=== PATIENT | female | born 1990 | race Caucasian/White ===

== ENCOUNTER 2017-11-06 12:08 | Emergency (ER) | payer OTHER ==
--- NOTE | 2017-11-06 12:52 | CPEKG ---
Heart Rate: 71 RR Interval: 845 P-R Interval: 136 QRSD Interval: 70 QT Interval: 404 QTC Interval: 439 P Hardesty: 10 QRS Hardesty: 59 T Wave Hardesty: 48 EKG Severity - NORMAL ECG - EKG Impression: SINUS RHYTHM Electronically Signed By: Xin Rowe 06-Nov-2017 14:55:05
--- NOTE | 2017-11-06 13:37 | EDPHY ---
H & P Time Seen by Provider: 11/06/17 12:35 HPI/ROS: HPI Chest pain. 26-year-old female by private vehicle. This patient complains of sudden onset chest pain which she describes as underneath her left mid breast onset at 10:25 a.m.. She describes it as sharp and stabbing. She stated that it was intense and worse with taking a deep breath and lasting about 15 min until 10:40 a.m.. She reports that it then decreased in intensity but kind of came and went at a lower level. Now she denies any chest pain or shortness of breath. She called her primary care physician and was told to come to the emergency department for evaluation. She has no cardiac risk factors. No significant past medical history. She does take control. No prolonged sedentary activity or travel. ROS: Constitutional: No fever, no chills. No weakness. Respiratory: No cough. No shortness of breath. Cardiac: As above, no palpitations. Gastrointestinal: No abdominal pain, no vomiting, no diarrhea. Musculoskeletal: No back pain. No neck pain. No myalgias or arthralgias. Skin: No rashes. Neurological: No headache. No focal weakness or altered sensation. Past medical history: No past medical history. No prescription medications. Social history: Nonsmoker. Here by herself. No alcohol. No IV drugs or street drugs. Physical Exam: General Appearance: Alert, no distress. This patient is responding to questions appropriately and in full sentences. This patient appears well- hydrated and well-nourished. Eyes: Pupils equal and round no pallor or injection. No lid edema, erythema or injection. Respiratory: There are no retractions, lungs are clear to auscultation with good air movement bilaterally. Cardiovascular: Regular rate and rhythm. No murmur. Gastrointestinal: Abdomen is soft and nontender, no masses, bowel sounds normal. No focal tenderness at McBurney's point. No Hernandez sign. Neurological: Motor sensory function is grossly intact. Cranial nerves are normal. Gait is normal. Skin: Warm and dry, no rashes. Musculoskeletal: Neck is supple and nontender. Extremities are symmetrical. All joints range without pain or impingement. Psychiatric: No agitation. No depression. Database: EKG: EKG time is 12:50 p.m.; EKG shows a narrow complex normal sinus rhythm with a ventricular rate of 71. The MN, QRS, QT intervals are within normal limits. There are no ST-T wave changes indicative of ischemic or injury pattern. No evidence of right heart strain. Interpreted by me. Imaging: Chest x-ray AP portable; the cardiac mediastinal silhouette is unremarkable. No evidence of infiltrate or pneumothorax. No acute cardiopulmonary disease process noted. Interpreted by me. Procedures: Emergency department course: Triage vitals reviewed. She was moderately hypertensive in triage. Vital signs otherwise normal. EKG obtained and reviewed by myself. Heart score minus troponin evaluation at 0. I feel she is very low risk for acute coronary syndrome and pulmonary embolism as an etiology of her transient pain. Results of her emergency department workup reviewed with her. She has been asymptomatic since being here. I feel she is safe for discharge she feels comfortable going home. Follow-up and return to emergency department precautions reviewed with her. All of her questions were answered. She was discharged in good condition. Differential Diagnosis: The differential diagnosis on this patient includes but is not limited to costal chondritis, pleurisy. Acute coronary syndrome, pericarditis, myocarditis , pulmonary embolism, aortic dissection, pneumonia, pneumothorax unlikely. This represents a partial list of diagnoses considered. These considerations are based on history, physical exam, past history, reassessment and diagnostic testing. Smoking Status: Never smoked Constitutional: Initial Vital Signs Temperature (C) 37 C 11/06/17 12:16 Heart Rate 82 11/06/17 12:16 Respiratory Rate 16 11/06/17 12:16 Blood Pressure 163/101 H 11/06/17 12:16 O2 Sat (%) 98 11/06/17 12:16 O2 Delivery Mode Room Air Allergies/Adverse Reactions: No Known Allergies Allergy (Unverified 11/06/17 12:15) Home Medications: Medication Instructions Recorded Fish Oil 1,000 mg Softgel 11/06/17 Medical Decision Making - Data Points Laboratory Results: Laboratory Results 11/06/17 13:00 Departure - Departure Disposition: Home, Routine, Self-Care Clinical Impression: Chest wall discomfort Condition: Good Instructions: Chest Pain (ED) Additional Instructions: Read and follow provided instructions. Follow-up with your primary care physician in 1-2 days for re-evaluation. Return to the emergency department for return of chest pain, shortness of breath or other serious concerns. Referrals: Wendy Costa MD [Primary Care Provider] - As per Instructions
[2017-11-06 14:12] VITALS: BP 122/81
== END 2017-11-06 14:12 | disposition home or self-care (01) ==
DX: R07.89 Other chest pain (principal)